=== PATIENT | male | born 1985 | race Two or more races ===

== ENCOUNTER 2018-03-02 17:03 | Emergency (ER) | payer OTHER ==
--- NOTE | 2018-03-02 17:28 | EDM.PDOC ---
ED HPI GENERAL MEDICAL PROBLEM - General Chief Complaint: Laceration Stated Complaint: LEFT RING FINGER LACERATION Time Seen by Provider: 03/02/18 17:24 - History of Present Illness INITIAL COMMENTS - FREE TEXT/NARRATIVE: HISTORY AND PHYSICAL: History of present illness: Patient 32-year-old male presents a concern of injury to third digit of his left hand via blunt force trauma at work today this resulted in a laceration he denies other trauma concern tetanus status is to be determined Review of systems: As per history of present illness and below otherwise all systems reviewed and negative. Past medical history: As per history of present illness and as reviewed below otherwise noncontributory. Surgical history: As per history of present illness and as reviewed below otherwise noncontributory. Social history: No reported history of drug or alcohol abuse. Family history: As per history of present illness and as reviewed below otherwise noncontributory. Physical exam: HEENT: Atraumatic, normocephalic, pupils reactive, negative for conjunctival pallor or scleral icterus, mucous membranes moist, throat clear, neck supple, nontender, trachea midline. Lungs: Clear to auscultation, breath sounds equal bilaterally, chest nontender. Heart: S1S2, regular, negative for clicks, rubs, or JVD. Abdomen: Soft, nondistended, nontender. Negative for masses or hepatosplenomegaly. Negative for costovertebral tenderness. Pelvis: Stable nontender. Genitourinary: Deferred. Rectal: Deferred. Extremity Patient has approximately 2 cm moderate depth laceration to the distal fourth digit of his left hand CMS neurovascular is unremarkable there's no tendon involvement Neuro: Awake, alert, oriented. Cranial nerves II through XII unremarkable. Cerebellum unremarkable. Motor and sensory unremarkable throughout. Exam nonfocal. Diagnostics: X-ray left Therapeutics: Patient was anesthetized 1% lidocaine without epinephrine irrigated cosmos 0.9 normal saline closed with 4-0 nylon interrupted suture bacitracin was applied Impression: #1 acute left hand injury with laceration fourth digit Definitive disposition and diagnosis as appropriate pending reevaluation and review of above. - Related Data Allergies Allergy/AdvReac Type Severity Reaction Status Date / Time No Known Allergies Allergy Verified 03/02/18 17:53 Home Meds: Home Meds . [No Known Home Meds] 03/02/18 [History] ED ROS GENERAL - Review of Systems Review Of Systems: ROS reveals no pertinent complaints other than HPI. ED EXAM, SKIN/RASH Exam: See Below (See dictation) Course - Vital Signs Text/Narrative:: Patient's x-ray demonstrates a comminuted tuft fracture of the fourth digit of the left hand patient was informed of this and the need for follow-up with orthopedic surgery or hand he will be given orthopedic clinic locally and also at [facility]. He will be prescribed Keflex to be taken as prescribed hydrocodone for pain he was splinted with a aluminum/foam splint. Last Recorded V/S: Last Vital Signs Temp 36.7 C 03/02/18 17:35 Pulse 105 H 03/02/18 17:35 Resp 18 03/02/18 17:35 BP 151/97 H 03/02/18 17:35 Pulse Ox 97 03/02/18 17:35 - Orders/Labs/Meds Orders: Active Orders 24 hr Category Date Time Status Hand 2V Lt [CR] Stat Exams 03/02/18 17:26 Taken Meds: Medications Discontinued Medications Generic Name Dose Route Start Last Admin Trade Name Armand PRN Reason Stop Dose Admin Lidocaine HCl 5 ml 03/02/18 17:26 03/02/18 17:32 Xylocaine-Mpf 1% INJECT 03/02/18 17:27 5 ml ONETIME ONE Administration Departure - Departure Time of Disposition: 18:20 Disposition: Home, Self-Care 01 Condition: Good Clinical Impression: Open fracture of tuft of distal phalanx of finger - Discharge Information Referrals: PCP,None [Primary Care Provider] - Forms: ED Department Discharge Additional Instructions: The following information is given to patients seen in the emergency department who are being discharged to home. This information is to outline your options for follow-up care. We provide all patients seen in our emergency department with a follow-up referral. The need for follow-up, as well as the timing and circumstances, are variable depending upon the specifics of your emergency department visit. If you don't have a primary care physician on staff, we will provide you with a referral. We always advise you to contact your personal physician following an emergency department visit to inform them of the circumstance of the visit and for follow-up with them and/or the need for any referrals to a consulting specialist. The emergency department will also refer you to a specialist when appropriate. This referral assures that you have the opportunity for followup care with a specialist. All of these measure are taken in an effort to provide you with optimal care, which includes your followup. Under all circumstances we always encourage you to contact your private physician who remains a resource for coordinating your care. When calling for followup care, please make the office aware that this follow-up is from your recent emergency room visit. If for any reason you are refused follow-up, please contact the [facility] emergency department at and asked to speak to the emergency department charge nurse. [facility] - Orthopedic Clinic Professional Building [address] [place] [address], [address] [place] [address] Keflex as prescribed hydrocodone as prescribed splint as directed call to schedule appointment for follow-up with orthopedic clinic above or [facility] hand surgery referral as discussed return as needed as discussed - My Orders Last 24 Hours: My Active Orders 03/02/18 17:26 Hand 2V Lt [CR] Stat - Assessment/Plan Last 24 Hours: My Active Orders 03/02/18 17:26 Hand 2V Lt [CR] Stat
[2018-03-02] MEDS ORDERED: ceFAZolin 1 GM Vial IM ONE (18:24)
[2018-03-02] MEDS ORDERED: Water For Injection, Sterile 20 ML ONE (18:36)
[2018-03-02] MEDS ORDERED: Water For Injection, Sterile 20 ML SDV INJECT ONE (18:45)
--- NOTE | 2018-03-03 10:28 | CR ---
EXAM DATE: 03/02/18 PATIENT'S AGE: 32 Patient: FARHAT SORTO Facility: [place], [place] Site . Site : [id number] Study: XRay Extremity Left hand [id number]/[id number] 5:54:22 PM Ordering Physician: Zheng Saxena Final Report: INDICATION: Left ring finger injury. TECHNIQUE: Two views of the left hand. COMPARISON: None. FINDINGS: Acute, comminuted fracture of the ring finger distal phalangeal tuft with mild separation of the fragments. No other abnormality. IMPRESSION: Acute comminuted fracture of the ring finger distal phalangeal tuft with mild separation of the fragments. Dictated by Gianin Kraus MD @ Mar 02 2018 6:08PM (Electronic Signature) Report Signed by Proxy. PAUL
== END 2018-03-02 19:30 | disposition home or self-care (01) ==
LOC: MW.ED 17:03
DX: S62.635B Displaced fracture of distal phalanx of left ring finger, initial encounter for open fracture (principal); X58.XXXA Exposure to other specified factors, initial encounter
CPT/HCPCS: 12001; 73120; 96372; 99283; J0690; 99282

== ENCOUNTER 2023-03-16 16:14 | Emergency (ER) | payer SELFPAY ==
[2023-03-16] MEDS ORDERED: Triamcinolone Acetonide 40 MG/ML 1 ML SDV INJECT STA (18:53)
[2023-03-16] MEDS ORDERED: Ketorolac 60 MG/2 ML SDV IM STA (18:53)
== END 2023-03-16 19:28 | disposition home or self-care (01) ==
LOC: MERGE 16:14 → MW.ED 16:14
DX: M25.512 Pain in left shoulder (principal)
CPT/HCPCS: 73030; 96372; 99283; J1885; J3301

== ENCOUNTER 2023-11-17 20:50 | Emergency (ER) | payer SELFPAY ==
[2023-11-17] MEDS: Cyclobenzaprine 10 MG Tab PO ONE (21:32)
[2023-11-17] MEDS: Acetaminophen/HYDROcodone 325-5 MG Tab PO ONE (21:33)
== END 2023-11-17 22:51 | disposition home or self-care (01) ==
LOC: MW.ED 20:50
DX: S06.0X0A Concussion without loss of consciousness, initial encounter (principal); S16.1XXA Strain of muscle, fascia and tendon at neck level, initial encounter; Z90.49 Acquired absence of other specified parts of digestive tract; W22.8XXA Striking against or struck by other objects, initial encounter
CPT/HCPCS: 70450; 70450-26; 72125; 72125-26; 99283; A9270-GY

== ENCOUNTER 2024-06-13 17:08 | Emergency (ER) | payer SELFPAY ==
[2024-06-13] MEDS: Ondansetron 4 MG/2 ML SDV IVPUSH ONE ×2 (17:38→19:23)
[2024-06-13] MEDS: Morphine 4 MG/ML Syringe IVPUSH ONE ×2 (17:39→21:40)
[2024-06-13] MEDS: Sodium Chloride 0.9% 1,000 ML IV ONE (17:39)
[2024-06-13 17:51] LABS: BASOPHILS ABSOLUTE AUTO 0.04 K/uL (0.00-0.20); BASOPHILS PERCENT AUTO 0.2 % (0.0-1.0); EOSINOPHILS ABSOLUTE AUTO 0.18 K/uL (0.00-0.45); HEMATOCRIT 53.7 % (42.0-52.0); HEMOGLOBIN 18.3 g/dL (14.0-18.0); IMMATURE GRAN ABSOLUTE AUTO 0.09 K/uL (0.00-0.05); IMMATURE GRAN PERCENT AUTO 0.5 % (0.0-0.4); LYMPHOCYTES ABSOLUTE AUTO 1.93 K/uL (1.00-4.80); LYMPHOCYTES PERCENT AUTO 11.1 % (24.0-44.0); MEAN CORPUSCULAR HEMOGLOBIN 29.9 pg (28.0-32.0); MEAN CORPUSCULAR HGB CONC 34.1 g/dL (32.0-36.0); MEAN CORPUSCULAR VOLUME 87.7 fL (83.0-99.0); MEAN PLATELET VOLUME 9.2 fL (9.4-12.4); MONOCYTES ABSOLUTE AUTO 0.97 K/uL (0.00-0.80); MONOCYTES PERCENT AUTO 5.6 % (0.0-8.0); NEUTROPHILS ABSOLUTE AUTO 14.11 K/uL (1.80-7.70); NEUTROPHILS PERCENT AUTO 81.6 % (41.0-71.0); PLATELET COUNT,PLT 342 K/uL (150-400); RED BLOOD CELL COUNT 6.12 M/uL (4.52-5.90); WHITE BLOOD CELL COUNT,WBC 17.32 K/uL (3.9-11.3)
[2024-06-13 18:22] LABS: A/G RATIO 0.9 (0.9-1.6); ALBUMIN 3.9 g/dL (3.4-5.0); BILIRUBIN TOTAL 1.8 mg/dL (0.2-1.0); CALCIUM 9.2 mg/dL (8.5-10.1); CARBON DIOXIDE,CO2 27.3 mmol/L (21.0-32.0); CREATININE 1.2 mg/dL (0.8-1.3); EST CRCL DRUG DOSING (CG) 92.51 mL/min; PROTEIN TOTAL,TP 8.3 g/dL (6.4-8.2)
[2024-06-13] MEDS: Iopamidol 755 MG/ML 500 ML Multipack Bottle IVPUSH ONE (19:30)
[2024-06-13] MEDS: Benzocaine 20% Topical Spray UD MUCMEM ONE (20:04)
[2024-06-13 20:35] LABS: APPEARANCE,URINE CLEAR; BILIRUBIN,URINE NEGATIVE (NEGATIVE); COLOR,URINE YELLOW; GLUCOSE,URINE NEGATIVE (NEGATIVE); KETONES,URINE NEGATIVE (NEGATIVE); LEUKOCYTE ESTERASE,URINE NEGATIVE (NEGATIVE); NITRITE,URINE NEGATIVE (NEGATIVE); OCCULT BLOOD,URINE NEGATIVE (NEGATIVE); PH,URINE 5.5 (5.0-8.0); PROTEIN,URINE NEGATIVE (NEGATIVE); UROBILINOGEN,URINE 0.2 EU/dL (<2.0)
[2024-06-13] MEDS: Aluminum Hydroxide/Magnesium Hydroxide/Simethicone Susp 30 ML Cup PO ONE (21:40)
[2024-06-13] MEDS: Famotidine 20 MG/2 ML SDV IVPUSH ONE (21:40)
== END 2024-06-13 22:08 | disposition home or self-care (01) ==
LOC: MW.ED 17:08
DX: R11.2 Nausea with vomiting, unspecified (principal); R19.7 Diarrhea, unspecified; R10.30 Lower abdominal pain, unspecified; R30.0 Dysuria; Z90.49 Acquired absence of other specified parts of digestive tract; Z75.8 Other problems related to medical facilities and other health care
CPT/HCPCS: 36415; 74177; 76705; 80053; 81003; 83690; 85025; 96361; 96374; 96375; 96376; 99284; A9270; J2270; J2405; J3490; J7030; Q9967